=== PATIENT | male | born 1995 | race Caucasian/White ===

== ENCOUNTER 2020-08-12 04:25 | Inpatient (IN) | payer MEDICAID, SELFPAY ==
[~2020-08-12] VITALS: Ht 172.7 cm; Wt 68.0 kg
[2020-08-12] MEDS ORDERED: NALOXONE PFS 2 MG/2 ML SYR ONE ×2 (04:33→04:40)
[2020-08-12] MEDS ORDERED: NALOXONE 0.4 MG/ML VIAL IVP ONE (04:35)
[2020-08-12 04:39] VITALS: BP 102/73
--- NOTE | 2020-08-12 04:39 | NUR ---
BIBA to bed 09
[2020-08-12] MEDS ORDERED: ONDANSETRON 4 MG/2 ML VIAL ONE (04:41)
--- NOTE | 2020-08-12 04:41 | NUR ---
Dr. Jones with pt for MSE
--- NOTE | 2020-08-12 04:45 | NUR ---
pt placed initially on NRB 15lpm. pt is currently satting at 95%.
[2020-08-12] MEDS ORDERED: NACL 0.9% 1,000 ML IV SCH (04:50)
--- NOTE | 2020-08-12 04:50 | NUR ---
placed on ETCO2 monitoring.
--- NOTE | 2020-08-12 04:55 | NUR ---
Eirc Cassidy at bedside.
[2020-08-12 05:23] LABS: BASOPHILS % (AUTO) 0.3 % (0.0-2.0); EOSINOPHILS # (AUTO) 0.1 K/uL (0-0.4); EOSINOPHILS % (AUTO) 0.4 % (0.0-4.0); HEMATOCRIT 42.3 % (36-52); HEMOGLOBIN 14.6 g/dL (12.0-18.0); LYMPHOCYTES # (AUTO) 2.5 K/uL (2.0-11.5); LYMPHOCYTES % (AUTO) 14.2 % (20.5-51.1); MEAN CORPUSCULAR HEMOGLOBIN 33 pg (27-31); MEAN CORPUSCULAR HGB CONC 35 g/dL (33-37); MONOCYTES # (AUTO) 0.4 K/uL (0.8-1.0); MONOCYTES % (AUTO) 2.1 % (1.7-9.3); NEUTROPHILS # (AUTO) 14.9 K/uL (1.8-7.7); PLATELET COUNT (AUTO) 283 K/uL (140-450); RED BLOOD CELL COUNT(AUTO) 4.36 MIL/uL (4.20-6.10); RED CELL DISTRIBUTION WIDTH 11.9 % (11.6-13.7)
[2020-08-12] MEDS ORDERED: ONDANSETRON 4 MG/2 ML VIAL IVP ONE (05:30)
[2020-08-12] MEDS ORDERED: NALOXONE PFS 2 MG/2 ML SYR IVP ONE (05:30)
[2020-08-12 05:32] LABS: APPEARANCE,URINE CLEAR (CLEAR); BILIRUBIN,URINE NEGATIVE (NEGATIVE); BLOOD, URINE TRACE-I (NEGATIVE); COLOR,URINE YELLOW (YELLOW); LEUKOCYTE ESTERASE ,URINE NEGATIVE (NEGATIVE); NITRITE, URINE NEGATIVE (NEGATIVE); UGLUCOSE 3+ (NEGATIVE)
[2020-08-12 05:33] LABS: ANION GAP 19.9 (8-16); CARBON DIOXIDE 21.4 mmol/L (21-32); CHLORIDE 103 mmol/L (98-107); CREATININE 1.2 mg/dL (0.6-1.3); GFR ARICAN-AMERICAN 96 mL/min (>90); GLUCOSE 238 mg/dL (74-106); POTASSIUM 3.3 mmol/L (3.5-5.1); SODIUM SERUM 141 mmol/L (136-145); UREA NITROGEN, BLOOD 10 mg/dL (7-18)
[2020-08-12 05:39] LABS: ALBUMIN 3.6 g/dL (3.4-5.0); ASPARTATE AMINOTRANSFERASE 22 U/L (15-37); TOTAL BILIRUBIN 0.3 mg/dL (0.0-1.0)
[2020-08-12 05:42] LABS: ACETAMINOPHEN < 0.5 ug/ml (10-30); SALICYLATE < 2.8 mg/dL (2.8-20.0)
[2020-08-12 05:42] LABS: BARBITURATE, URINE NEGATIVE ng/ml (NEG <=200); BENZODIAZEPINE, URINE NEGATIVE ng/mL (NEG <=200); CANNABINOID, URINE NEGATIVE ng/mL (NEG <=50); COCAINE, URINE NEGATIVE ng/mL (NEG <=300); OPIATE, URINE NEGATIVE ng/mL (NEG <=2000); PHENCYCLIDINE SCREEN,URINE NEGATIVE ng/mL (NEG <=25)
[2020-08-12 05:48] LABS: RBC,URINE 0-5 /HPF (0-5); WBC,URINE 0-5 /HPF (0-5)
--- NOTE | 2020-08-12 06:15 | NUR ---
PER DR. FARFAN, PT OK TO HAVE PO FLUIDS
--- NOTE | 2020-08-12 06:21 | NUR ---
pt now a/o x 4, gcs 15. currently states does not remember what happened. denies drug use.
--- NOTE | 2020-08-12 07:22 | NUR ---
REPORT RECEIVED FROM ANGELICA FLOYD, TRANSFER OF CARE AT THIS TIME.
--- NOTE | 2020-08-12 07:30 | NUR ---
PT RESTING IN BED WITH EVEN AND UNLABORED RESPIRATIONS. NO SIGNS OF DISTRESS. A/O X4 GCS 15. PT ON PULP MILL SUPERVISOR, VSS. WILL CONTINUE TO MONITOR.
[2020-08-12] MEDS ORDERED: DOCUSATE SODIUM 100 MG GELCAP PO PRN (07:50)
[2020-08-12] MEDS ORDERED: ZOLPIDEM 5 MG TAB PO PRN (07:50)
[2020-08-12] MEDS ORDERED: MORPHINE SULFATE 2 MG/ML SYR IVP PRN (07:50)
[2020-08-12] MEDS ORDERED: HYDROcodone/APAP 5/325 MG 1 TAB TAB PO PRN (07:50)
[2020-08-12] MEDS ORDERED: ONDANSETRON 4 MG/2 ML VIAL IVP PRN (07:50)
[2020-08-12] MEDS ORDERED: LORazepam 2 MG/ML VIAL IM/IVP PRN (07:50)
[2020-08-12] MEDS ORDERED: HEPARIN PER PHARMACY MC PRN (08:15)
[2020-08-12] MEDS ORDERED: cefTRIAXone 1,000 MG VIAL ONE (08:31)
[2020-08-12] MEDS: NACL 0.9% 1,000 ML IV SCH ×2 (08:42→17:55)
--- NOTE | 2020-08-12 08:58 | NUR ---
PT C/O NAUSEA. PT GIVEN EMESIS BAG AND GIVEN PRN ZOFRAN ORDERED.
[2020-08-12] MEDS: ACETAMINOPHEN 325 MG TAB PO PRN (09:13)
[2020-08-12 09:44] LABS: PROTHROMBIN TIME 10.3 secs (10.8-13.4)
[2020-08-12 09:52] LABS: CHOL/HDL RATIO 2.9 (1-4.5); FREE T4 (FREE THYROXINE) 0.99 ng/dL (0.76-1.46); MAGNESIUM 1.8 mg/dL (1.8-2.4); THYROID STIMULATING HORMONE 0.5 uIU/mL (0.34-3.74)
--- NOTE | 2020-08-12 10:12 | NUR ---
DR VEGA, GROCERY CHECKER AT BEDSIDE EVALUATING PT
[2020-08-12] MEDS ORDERED: hePARIN / DEXT 5% PREMIX 250 ML IV SCH (11:00)
--- NOTE | 2020-08-12 11:26 | NUR ---
MRSA SAMPLE COLLECTED AND WALKED TO LAB
--- NOTE | 2020-08-12 12:57 | NUR ---
PT SLEEPING IN BED WITH EVEN AND UNLABORED RESPIRATIONS. PT ON DIRECTOR OF FOOD AND BEVERAGE SERVICES. VSS. WILL CONTINUE TO MONITOR.
--- NOTE | 2020-08-12 14:47 | NUR ---
PT SLEEPING IN BED WITH EVEN AND UNLABORED RESPIRATIONS. PT ON MOTORBOAT MECHANIC HELPER. VSS. WILL CONTINUE TO MONITOR.
--- NOTE | 2020-08-12 15:33 | NUR ---
PATIENT HAS BEEN SCREENED AND CATEGORIZED LOW NUTRITION RISK. PATIENT WILL BE SEEN WITHIN 7 DAYS OF ADMISSION. 08/18/[address]
--- NOTE | 2020-08-12 16:25 | NUR ---
REPORT GIVEN TO JENNY FLOYD FOR ADMIN TO TELEMETRY. ETA 15 MINS
--- NOTE | 2020-08-12 16:50 | NUR ---
PATIENT ARRIVED UNIT VIA GURNEY ACCOMPANIED WITH ED NURSE. PATIENT IS AWAKE AND ORIENTED X4, ABLE TO FOLLOW COMMAND AND MAKE NEEDS KNOWN. RESPIRATION EVEN, UNLABORED ON RA. NO SIGNS OF ACUTE DISTRESS NOTED. IV ON RAC 20G, RUNNING HEPARIN DRIP AT 800 UNIT/HR. LAC 20G, NOT RUNNING ANYTHING AT THIS TIME. SKIN WARM TO TOUCH, CLEAN AND DRY. PATIENT IS ABLE TO USE BEDSIDE URINAL. PATIENT DECLINED TO NOTIFY PCP AND FAMILY. SAID THAT HE LIVES ALONE, PUT HIS GRANDMOTHER DONN EMERGENCY CONTACT. ORIENTED PATIENT TO HIS ROOM, INSTRUCTED HIM ON HOW TO USE CALL LIGHT, LIGHT, BATHROOM, BED REMOTE. PATIENT VERBALIZED OK. SAFETY MEASURES IN PLACE. BED IN LOW POSITION, CALL LIGHT WITHIN REACH.
--- NOTE | 2020-08-12 17:02 | NUR ---
Patient will be admitted to care of DR LINK. Admited to TELEMETRY. Will go to room 123A. Belongings list completed. Report to JENNY FLOYD.
--- NOTE | 2020-08-12 17:30 | NUR ---
PATIENT IS TALKING ON HIS PHONE. NO SIGNS OF ACUTE DISTRESS NOTED. SAFETY MEASURES IN PLACE.
[2020-08-12] MEDS ORDERED: POTASSIUM CHLORIDE 10 MEQ TABER PO SCH (17:40)
[2020-08-12] MEDS ORDERED: LORazepam 1 MG TAB PO PRN (17:45)
--- NOTE | 2020-08-12 17:57 | NUR ---
PTT 76.9. FOLLOWED HEPARIN DRIP PROTOCOL, REDUCED 100 UNIT/HR AND WILL ORDER PTT DRAW IN 6 HOUR. US TECH IS BY BEDSIDE. SAFETY MEASURES IN PLACE.
--- NOTE | 2020-08-12 18:38 | NUR ---
PATIENT'S GRANDPARENTS ARE BY BEDSIDE AND VISITING PATIENT.
--- NOTE | 2020-08-12 19:45 | NUR ---
ENDORSED PATIENT TO MAPPING SUPERVISOR NURSE YADIRA FOR CONTINUITY OF CARE. PATIENT IS ON HEPARIN DRIP 700 UNIT/HR AND NEXT DARW AT 08/13/20 0000. GRANDPARENTS ARE STILL AT BEDSIDE. PATIENT IS IN STABLE CONDITION.
[2020-08-12 20:00] VITALS: BP 115/75
--- NOTE | 2020-08-12 20:00 | NUR ---
PATIENT WAS SEEN IN HIS BED AWAKE AND ALERT X 4, COHERENT, LEGAL AGE, MOTHER AND A FAMILY AT THE BEDSIDE WITH THE PATIENT, PATIENT HAS GIVEN CONSENT TO GIVE INFORMATION REGARDING HIS DIAGNOSIS AND CC, RN ALLOWED THE MOTHER OF THE PATIENT TO LOOK AT THE ER M.D. NOTES. CHARGE NURSE AWARE.
--- NOTE | 2020-08-12 21:00 | NUR ---
LAB CALLED IN FOR TROPONIN LEVEL OF 0.677 FROM 1.33, MD WAS NOT MADE AWARE DUE TO VALUE WAS TRENDING DOWN.
--- NOTE | 2020-08-12 23:00 | NUR ---
PATIENT WAS PICKED UP FOR CT OF THE HEAD. CAME BACK AFTER 30 MINUTES NO COMPLAINTS EXCEPT HE WAS ANXIOUS OF CLOSE AREAS SPECIALLY METAL DOMES.
[2020-08-13] VITALS: BP 137/71
--- NOTE | 2020-08-13 | NUR ---
PTT VALUE WAS CALLED IN 51.6 THERAPEUTIC LEVEL, NO CHANGE IN THE HEPARIN INFUSION RATE. PTT TO BE DRAWN THIS MORNING AT 6 AM.
--- NOTE | 2020-08-13 02:00 | NUR ---
PATIENT C/O HEADACHE 07/23 MEDICATED WITH TYLENOL
[2020-08-13] MEDS: ACETAMINOPHEN 325 MG TAB PO PRN (02:53)
[2020-08-13 04:00] VITALS: BP 103/62
[2020-08-13] MEDS: NACL 0.9% 1,000 ML IV SCH ×3 (04:00→18:31)
[2020-08-13 06:02] LABS: BASOPHILS # (AUTO) 0.1 K/uL (0.00-0.22); BASOPHILS % (AUTO) 0.4 % (0.0-2.0); EOSINOPHILS % (AUTO) 0.2 % (0.0-4.0); HEMATOCRIT 40.2 % (36-52); HEMOGLOBIN 14.2 g/dL (12.0-18.0); LYMPHOCYTES # (AUTO) 2.8 K/uL (2.0-11.5); MEAN CORPUSCULAR HEMOGLOBIN 34 pg (27-31); MEAN CORPUSCULAR HGB CONC 35 g/dL (33-37); MEAN CORPUSCULAR VOLUME 94.9 fL (80-94); MONOCYTES # (AUTO) 0.8 K/uL (0.8-1.0); NEUTROPHILS % (AUTO) 71.4 % (42.2-75.2); PLATELET COUNT (AUTO) 225 K/uL (140-450); RED BLOOD CELL COUNT(AUTO) 4.24 MIL/uL (4.20-6.10); WHITE BLOOD COUNT (AUTO) 12.7 K/uL (4.8-10.8)
[2020-08-13 06:22] LABS: ANION GAP 11.3 (8-16); CARBON DIOXIDE 28.7 mmol/L (21-32); CREATININE 0.8 mg/dL (0.6-1.3)
[2020-08-13 06:35] LABS: MAGNESIUM 1.6 mg/dL (1.8-2.4); PHOSPHORUS 2.8 mg/dL (2.5-4.9)
--- NOTE | 2020-08-13 06:43 | NUR ---
PTT DRAWN AT 5;56 IS STILL PENDING WAITING FOR THE RESULT.
--- NOTE | 2020-08-13 06:49 | NUR ---
CT OF THE HEAD CAME BACK NEGATIVE RESULT/ NORMAL FINDINGS ONLY.
--- NOTE | 2020-08-13 07:10 | NUR ---
ALL REPORTS WERE GIVEN. CONTINUATION OF CARE ENDORSED.
--- NOTE | 2020-08-13 07:25 | NUR ---
RECEIVED REPORT FROM HVAC MECHANIC RN. PT IS A&OX4. PT IS SR ON THE MONITOR, ON RA AT THIS TIME, RESPIRATIONS EVEN AND UNLABORED WITH NO SIGN OF RESPIRATORY DISTRESS. PT HAS ACCESS AT RAC 20 G AND LAC 20 G. HEPARIN IS RUNNING AT 700 UNITS/HR AND NS AT 100 ML/HR. PT IS ON REGULAR THIN LIQUID DIET AT THIS TIME. HOB IS 30 DEG, WITH SAFETY MEASURES IN PLACE. CALL LIGHT WITHIN REACH.
[2020-08-13 08:00] VITALS: BP 103/64
[2020-08-13] MEDS: MULTIVITAMIN 1 TAB PO SCH (08:17)
[2020-08-13] MEDS: THIAMINE 100 MG TAB PO SCH (08:17)
[2020-08-13] MEDS: FOLIC ACID 1 MG TAB PO SCH (08:17)
[2020-08-13] MEDS ORDERED: MAGNESIUM OXIDE 400 MG TAB ONE (08:37)
[2020-08-13] MEDS: MAGNESIUM OXIDE 400 MG TAB PO SCH (08:46)
--- NOTE | 2020-08-13 08:47 | NUR ---
PT ALERT AND ORIENTED, COOPERATIVE. ALL MEDICATIONS ADMINISTERED PER ORDER, PT TOLERATED WELL. PER HEPARIN PROTOCOL, PTT WAS 44.1, BOLUS OF 2000 UNITS ADMINISTERED AND INCREASED RATE TO 800 ML/HR. NEXT PTT FOR 1500. PT ABLE TO MAKE NEEDS KNOWN, DENIES PAIN. HOB 30 DEG WITH BED IN LOW, LOCKED POSITION
--- NOTE | 2020-08-13 08:51 | NUR ---
L AC IV REMOVED DUE TO PT COMPLAINT OF PAIN AND IRRITATION. BLEEDING CONTROLLED.
--- NOTE | 2020-08-13 12:29 | NUR ---
TECH AT BEDSIDE COMPLETING ECHO
--- NOTE | 2020-08-13 13:54 | NUR ---
MEDICATION ADMINISTERED PER ORDER, PT TOLERATED WELL. HOB IS AT 30 DEG, CALL LIGHT WITHIN REACH
--- NOTE | 2020-08-13 15:27 | NUR ---
HEPARIN DISCONTINUED PER DR. VEGA'S ORDER
[2020-08-13 16:00] VITALS: BP 115/61
--- NOTE | 2020-08-13 17:00 | NUR ---
MEDICATION ADMINISTERED PER ORDER, PT TOLERATED WELL
--- NOTE | 2020-08-13 19:15 | NUR ---
REPORT GIVEN TO BEHAVIORAL SCIENCES DEPARTMENT CHAIR RN FOR CONTINUITY OF CARE
--- NOTE | 2020-08-13 19:16 | NUR ---
RECEIVED BEDSIDE REPORT FROM DAY RN. PT IS AAOX4. PT IS AMBULATORY AND ABLE TO MAKE NEEDS KNOWN. RESPIRATIONS ARE EQUAL AND UNLABORED ON RA. DX OD. PT ON MED/SURG. LAC 20 G INFUSING NS AT 100ML/H. PT IS ON REGULAR THIN LIQUID DIET AT THIS TIME. SITTING UP IN BED TALKING WITH FRIENDS. POC DISCUSSED WITH PT. SAFETY MEASURES IN PLACE. CALL LIGHT WITHIN REACH.
[2020-08-13 20:00] VITALS: BP 127/70
--- NOTE | 2020-08-13 20:20 | NUR ---
VITAL SIGNS ARE WITHIN NORMAL LIMITS. PT WITH 2 FRIENDS AT BEDSIDE. PT DENIES ANY S/SX OF DISTRESS. ALL NEEDS MET. CALL LIGHT IS WITHIN REACH. WILL CONTINUE TO MONITOR.
--- NOTE | 2020-08-13 22:15 | NUR ---
ROUNDS MADE. PT OBSERVED LAYING IN BED APPEARS TO BE ASLEEP. CHEST RISE AND FALL NOTED. CALL LIGHT IS WITHIN REACH. WILL CONTINUE TO MONITOR.
--- NOTE | 2020-08-14 00:05 | NUR ---
ROUNDS MADE. PT OBSERVED IN BED APPEARS TO BE ASLEEP. CHEST RISE AND FALL NOTED. CALL LIGHT IS WITHIN REACH. WILL CONTINUE TO MONITOR.
--- NOTE | 2020-08-14 02:06 | NUR ---
ROUNDS MADE. PATIENT IS RESTING COMFORTABLY IN BED USING PHONE. DENIES S/SX OF DISTRESS. WILL CONTINUE TO MONITOR.
[2020-08-14] MEDS: NACL 0.9% 1,000 ML IV SCH (03:36)
[2020-08-14 04:00] VITALS: BP 121/72
--- NOTE | 2020-08-14 04:15 | NUR ---
VITAL SIGNS ARE WITHIN NORMAL LIMITS. ALL SAFETY MEASURES ARE IN PLACE. WILL CONTINUE TO MONITOR.
--- NOTE | 2020-08-14 07:31 | NUR ---
GAVE BEDSIDE REPORT TO DAY RN. PT ENDORSED IN STABLE CONDITION.
--- NOTE | 2020-08-14 07:32 | NUR ---
RECEIVED BEDSIDE REPORT FROM CASE INVESTIGATOR NURSE OF CONTINUITY OF CARE. PT IS AAOX4. PT IS AMBULATORY AND ABLE TO MAKE NEEDS KNOWN. RESPIRATIONS ARE EQUAL AND UNLABORED ON RA. NO RESPIRATORY DISTRESS NOTED. SKIN IS WARM AND DRY. RAC 20 G INFUSING NS AT 100ML/H. DENIES PAIN AT THIS MOMENT. POC DISCUSSED WITH PT. SAFETY MEASURES IN PLACE. CALL LIGHT WITHIN REACH. WILL CONTINUE TO MONITOR.
[2020-08-14 08:00] VITALS: BP 116/75
[2020-08-14] MEDS: MAGNESIUM OXIDE 400 MG TAB PO SCH (08:56)
[2020-08-14] MEDS: THIAMINE 100 MG TAB PO SCH (08:56)
[2020-08-14] MEDS: FOLIC ACID 1 MG TAB PO SCH (08:56)
[2020-08-14] MEDS: MULTIVITAMIN 1 TAB PO SCH (08:56)
--- NOTE | 2020-08-14 09:10 | NUR ---
ALL SCHEDULED MEDS GIVEN. PT IS STABLE. NO DISTRESS NOTED. WILL CONTINUE TO MONITOR
[2020-08-14 09:37] LABS: ANION GAP 19.1 (8-16); CARBON DIOXIDE 24.8 mmol/L (21-32); CREATININE 0.7 mg/dL (0.6-1.3); POTASSIUM 3.9 mmol/L (3.5-5.1)
[2020-08-14 09:40] LABS: EOSINOPHILS # (AUTO) 0.1 K/uL (0-0.4); HEMATOCRIT 41.8 % (36-52); LYMPHOCYTES # (AUTO) 1.9 K/uL (2.0-11.5); MONOCYTES # (AUTO) 0.4 K/uL (0.8-1.0); NEUTROPHILS # (AUTO) 2.4 K/uL (1.8-7.7)
[2020-08-14 09:41] LABS: MAGNESIUM 1.8 mg/dL (1.8-2.4); PHOSPHORUS 3.1 mg/dL (2.5-4.9)
[2020-08-14 09:56] LABS: BASOPHILS % (AUTO) 0.6 % (0.0-2.0); EOSINOPHILS % (AUTO) 2.3 % (0.0-4.0); HEMOGLOBIN 14.8 g/dL (12.0-18.0); LYMPHOCYTES % (AUTO) 39.5 % (20.5-51.1); MEAN CORPUSCULAR HEMOGLOBIN 34 pg (27-31); MEAN CORPUSCULAR HGB CONC 36 g/dL (33-37); MEAN CORPUSCULAR VOLUME 95.5 fL (80-94); MONOCYTES % (AUTO) 7.5 % (1.7-9.3); NEUTROPHILS % (AUTO) 50.1 % (42.2-75.2); PLATELET COUNT (AUTO) 253 K/uL (140-450); RED BLOOD CELL COUNT(AUTO) 4.37 MIL/uL (4.20-6.10); RED CELL DISTRIBUTION WIDTH 12.2 % (11.6-13.7); WHITE BLOOD COUNT (AUTO) 4.7 K/uL (4.8-10.8)
[2020-08-14] MEDS ORDERED: CEPH250C16 PO (11:00)
--- NOTE | 2020-08-14 11:00 | NUR ---
NEW DISCHARGE ORDER RECEIVED. WILL INFORM PATIENT.
[2020-08-14 11:49] VITALS: BP 116/75
--- NOTE | 2020-08-14 12:00 | NUR ---
ENDORSED DISCHARGE INSTRUCTIONS TO PATIENT. PATIENT VERBALIZED UNDERSTANDING AND SIGNED DISCHARGE FORMS.
--- NOTE | 2020-08-14 12:10 | NUR ---
PATIENT DISCHARGE OFF THE UNIT. IV CATH AND ID BAND REMOVED. PATIENT PICKED UP BY FAMILY AT THE FRONT LOBBY. PT WAS STABLE PRIOR TO DISCHARGE.
== END 2020-08-14 12:10 | disposition home or self-care (01) | DRG 720 ==
LOC: MED 04:25 → MTU 06:29
PROVIDERS: ADMIT Family Medicine; ATTEND Family Medicine
DX: A41.9 Sepsis, unspecified organism (principal); I21.A1 Myocardial infarction type 2; J96.00 Acute respiratory failure, unspecified whether with hypoxia or hypercapnia; T50.901A Poisoning by unspecified drugs, medicaments and biological substances, accidental (unintentional), initial encounter; G90.9 Disorder of the autonomic nervous system, unspecified; N39.0 Urinary tract infection, site not specified; E87.6 Hypokalemia; Z20.822 Contact with and (suspected) exposure to COVID-19; D72.829 Elevated white blood cell count, unspecified; E83.42 Hypomagnesemia; E78.5 Hyperlipidemia, unspecified; Y90.6 Blood alcohol level of 120-199 mg/100 ml; F10.120 Alcohol abuse with intoxication, uncomplicated; Y92.89 Other specified places as the place of occurrence of the external cause
CPT/HCPCS: 36415; 36600; 70450; 71045; 80048; 80053; 80305; 81001; 82150; 82550; 82803; 83036; 83690; 83735; 83880; 84100; 84439; 84443; 84484; 85025; 85610; 85730; 87081; 93005; 93880; 96365; 96375; 96376; 99291; G0480; G0482; J0696; J1644; J2310; J2405; J7060

== ENCOUNTER 2022-03-11 00:20 | Emergency (ER) | payer MEDICAID ==
[~2022-03-11] VITALS: Ht 170.2 cm; Wt 54.4 kg
[2022-03-11 00:20] VITALS: BP 150/80
[~2022-03-11 00:20] MED LIST: CEPH250C16 PO
--- NOTE | 2022-03-11 00:35 | NUR ---
Dr. Rae examining patient at [facility].
--- NOTE | 2022-03-11 00:37 | NUR ---
Patient taken to chair C.
[2022-03-11] MEDS ORDERED: NALO4SPR NS ×2 (01:48→13:37)
[2022-03-11] MEDS ORDERED: ONDANSETRON 4 MG/2 ML VIAL IVP ONE (02:05)
--- NOTE | 2022-03-11 03:21 | NUR ---
PT AMB TO ER BED 03.
[2022-03-11 04:11] VITALS: BP 150/80
--- NOTE | 2022-03-11 04:12 | NUR ---
Patient discharged with v/s stable. Written and verbal after care instructions given and explained. Patient alert, oriented and verbalized understanding of instructions. Ambulatory with steady gait. All questions addressed prior to discharge. ID band removed. Patient advised to follow up with PMD. Rx of NARCAN given. Patient educated on indication of medication including possible reaction and side effects. Opportunity to ask questions provided and answered.
== END 2022-03-11 04:08 | disposition home or self-care (01) ==
LOC: MED 00:20
DX: F10.129 Alcohol abuse with intoxication, unspecified (principal); Y90.9 Presence of alcohol in blood, level not specified
CPT/HCPCS: 96374; 99283

== ENCOUNTER 2022-03-11 08:54 | Emergency (ER) | payer BC, MEDICAID ==
[~2022-03-11] VITALS: Ht 170.2 cm; Wt 56.7 kg
[~2022-03-11 08:54] MED LIST changes: +NALO4SPR NS
--- NOTE | 2022-03-11 08:56 | NUR ---
PATIENT BIBA TO BED 10.
[2022-03-11 08:57] VITALS: BP 139/83
--- NOTE | 2022-03-11 09:02 | NUR ---
PT WAS B/B FROM HOME FOR ALOC 2ND TO OVERDOSE. PT WAS FOUND STOPPED BREATHING THEN WAS RESUSCITATED BY ROOMATE VIA CPR. EMT GAVE NARCON 6MB WHILE ARRIVAL. PT WOKE UP. PT WAS A/OX4 NOW. VS STABLE, BUT HR STILL HIGH. PT WAS PUT ON MONITOR ON. EKG IS ONGOING BEDSIDE.
[2022-03-11 09:42] LABS: BASOPHILS % (AUTO) 0.1 % (0.0-2.0); HEMATOCRIT 46.7 % (36-52); LYMPHOCYTES # (AUTO) 0.4 K/uL (2.0-11.5); LYMPHOCYTES % (AUTO) 2.7 % (20.5-51.1); MEAN CORPUSCULAR HEMOGLOBIN 32 pg (27-31); MEAN CORPUSCULAR HGB CONC 34 g/dL (33-37); MEAN CORPUSCULAR VOLUME 94.9 fL (80-94); MONOCYTES # (AUTO) 0.1 K/uL (0.8-1.0); NEUTROPHILS # (AUTO) 12.4 K/uL (1.8-7.7); NEUTROPHILS % (AUTO) 96.2 % (42.2-75.2); PLATELET COUNT (AUTO) 285 K/uL (140-450); RED BLOOD CELL COUNT(AUTO) 4.92 MIL/uL (4.20-6.10); RED CELL DISTRIBUTION WIDTH 12.8 % (11.6-13.7); WHITE BLOOD COUNT (AUTO) 12.9 K/uL (4.8-10.8)
[2022-03-11 10:09] LABS: APPEARANCE,URINE CLEAR (CLEAR); BILIRUBIN,URINE NEGATIVE (NEGATIVE); BLOOD, URINE TRACE-I (NEGATIVE); COLOR,URINE YELLOW (YELLOW); LEUKOCYTE ESTERASE ,URINE NEGATIVE (NEGATIVE); NITRITE, URINE NEGATIVE (NEGATIVE); UGLUCOSE 2+ (NEGATIVE)
[2022-03-11 10:27] LABS: BARBITURATE, URINE NEGATIVE ng/ml (NEG <=200); BENZODIAZEPINE, URINE NEGATIVE ng/mL (NEG <=200); CANNABINOID, URINE NEGATIVE ng/mL (NEG <=50); COCAINE, URINE NEGATIVE ng/mL (NEG <=300)
[2022-03-11 10:28] LABS: OPIATE, URINE NEGATIVE ng/mL (NEG <=2000); PHENCYCLIDINE SCREEN,URINE NEGATIVE ng/mL (NEG <=25)
[2022-03-11 10:38] LABS: ALBUMIN 4.9 g/dL (3.4-5.0); ANION GAP 22.4 (8-16); ASPARTATE AMINOTRANSFERASE 66 U/L (15-37); CARBON DIOXIDE 25.3 mmol/L (21-32); CHLORIDE 97 mmol/L (98-107); CREATININE 1.2 mg/dL (0.6-1.3); GFR ARICAN-AMERICAN 95 mL/min (>90); GLUCOSE 312 mg/dL (74-106); SODIUM SERUM 138 mmol/L (136-145); TOTAL BILIRUBIN 0.3 mg/dL (0.0-1.0); UREA NITROGEN, BLOOD 12 mg/dL (7-18)
--- NOTE | 2022-03-11 10:51 | NUR ---
FULLY ALERT. LYING ON BED, TALKING WITH FRIEND OR FAMILY. NO ACUTE DISTRESS. WATER AND JUICE OFFERED AND ENCOURANGE PT TO DRINK.
[2022-03-11 11:18] LABS: POTASSIUM 6.7 mmol/L (3.5-5.1); SALICYLATE < 2.8 mg/dL (2.8-20.0)
[2022-03-11] MEDS ORDERED: ONDANSETRON 4 MG/2 ML VIAL IVP ONE (11:25)
[2022-03-11] MEDS ORDERED: NACL 0.9% 1,000 ML IV ONE (11:25)
[2022-03-11 11:56] LABS: ACETAMINOPHEN < 0.5 ug/ml (10-30)
--- NOTE | 2022-03-11 12:10 | NUR ---
PT VOMITED ONCE IN ER. MD AWARE. IVF NS0.9% WAS ORDERED. SL ESTABLISHED ON RAC 20G. NOS0.9% BOLUS STARTED. ZOFRAN IVP GIVEN WELL.
[2022-03-11 13:22] LABS: ANION GAP 7.6 (8-16); CARBON DIOXIDE 28.6 mmol/L (21-32); CREATININE 0.9 mg/dL (0.6-1.3); POTASSIUM 4.2 mmol/L (3.5-5.1)
[2022-03-11] MEDS ORDERED: NALO4SPR NS (13:37)
--- NOTE | 2022-03-11 13:50 | NUR ---
Patient discharged with v/s stable. Written and verbal after care instructions given and explained. Patient verbalized understanding. Ambulatory with steady gait. All questions addressed prior to discharge. Advised to follow up with PMD.
[2022-03-11 13:51] VITALS: BP 124/75
== END 2022-03-11 13:50 | disposition home or self-care (01) ==
LOC: MED 08:54
DX: Z00.00 Encounter for general adult medical examination without abnormal findings (principal); T50.7X1A Poisoning by analeptics and opioid receptor antagonists, accidental (unintentional), initial encounter; Y92.89 Other specified places as the place of occurrence of the external cause
CPT/HCPCS: 36415; 80048; 80053; 80305; 81003; 84484; 85025; 96361; 96374; 99291; G0480; G0482; J2405; J7030